=== PATIENT | female | born 1985 | race Caucasian/White ===

== ENCOUNTER 2018-09-21 07:37 | Inpatient (IN) ==
[2018-09-21] MEDS ORDERED: LACTATED RINGERS 1,000 ML IV PRN (07:55)
[2018-09-21] MEDS ORDERED: ONDANSETRON 4 MG/2 ML VIAL IV PRN ×2 (07:55→12:48)
[2018-09-21] MEDS ORDERED: LACTATED RINGERS 1,000 ML IV SCH ×3 (08:00→13:00)
[2018-09-21] MEDS ORDERED: CITRIC ACID/SODIUM CITRATE 30 ML UDCUP PO ONE (08:01)
[2018-09-21] MEDS ORDERED: PROMETHAZINE 25 MG/1 ML VIAL IM ONE (08:01)
[2018-09-21] MEDS ORDERED: ePHEDrine 50 MG/ML AMP IV PRN (08:01)
[2018-09-21] MEDS ORDERED: FAMOTIDINE 20 MG/2 ML VIAL IV ONE (08:01)
[2018-09-21] MEDS ORDERED: hydrOXYzine HCL 25 MG/1 ML VIAL IM PRN (08:01)
[2018-09-21] MEDS ORDERED: diphenhydrAMINE 50 MG/1 ML VIAL IV PRN ×2 (08:01)
[2018-09-21] MEDS ORDERED: OXYTOCIN/LR 20 UNIT/1,000 ML BAG IV ONE ×2 (08:02→12:48)
[2018-09-21 08:16] LABS: Basophils % 0.3 % (0.0-0.8); Eosinophils # 0.1 10*3/uL (0.0-0.87); Eosinophils % 1.8 % (0.00-10.9); Hematocrit 36.7 VOL% (35.7-47.0); Hemoglobin 12.1 GM/DL (12.0-16.0); Immature Granulocytes % 0.5 %; Immature Granulocytes Absolute 0.04 #; Lymphocytes # 1.6 10*3/uL (1.4-4.0); Lymphocytes % 21.3 % (21.3-54.2); Mean Corpuscular Hemoglobin 31 PG (27-34); Mean Corpuscular Volume 93.6 FL (87-102); Monocytes # 0.8 10*3/uL (0.11-0.8); Monocytes % 11.5 % (1.7-12.7); Neutrophils # 4.7 10*3/uL (1.4-7.4); Neutrophils % 64.6 % (38.7-73.9); Platelet Count 265 T/CUMM (130-400); Red Blood Count 3.92 MC/CUMM (3.8-5.5); Red Cell Distribution Width 15.2 % (9.3-17.3); White Blood Count 7.3 T/CUMM (4-12)
[2018-09-21] MEDS ORDERED: ceFAZolin 2,000 MG in PREMIX 1 EACH IV ONE (08:21)
[2018-09-21 08:42] LABS: Alanine Aminotransferase 21 U/L (13-56); Albumin 2.8 G/DL (3.4-5.0); Alkaline Phosphatase 167 U/L (45-117); Aspartate Amino Transferase 21 U/L (0-37); Bilirubin,Total < 0.39 MG/DL (0.2-1.0); Blood Urea Nitrogen 7 MG/DL (7-18); Calcium 8.9 MG/DL (8.5-10.1); Glucose 75 MG/DL (74-106); Osmolality,Calculated 271.7 MOS/KG (273-304); Potassium 4.1 MMOL/L (3.5-5.1); Sodium 138 MMOL/L (136-145); Total Protein 7.7 G/DL (6.4-8.3)
[2018-09-21] MEDS ORDERED: METHYLERGONOVINE 0.2 MG/1 ML AMP ONE (12:06)
[2018-09-21] MEDS ORDERED: RHO(D) IMMUNE GLOBULIN 300 MCG SYRINGE IM ONE (12:48)
[2018-09-21] MEDS ORDERED: SIMETHICONE CHEW 80 MG TABLET PO PRN (12:48)
[2018-09-21] MEDS ORDERED: ACETAMINOPHEN 325 MG TABLET PO PRN (12:48)
[2018-09-21] MEDS ORDERED: MAGNESIUM HYDROXIDE SUSP 30 ML UDCUP PO PRN (12:48)
[2018-09-21] MEDS ORDERED: fentaNYL 100 MCG/2 ML VIAL ONE (13:07)
[2018-09-21 14:00] LABS: Apearance,Urine CLEAR (Clear); Bilirubin,Urine Negative (Negative); Blood, Urine Negative (Negative); Glucose,Urine (UA) Negative (Negative); Ketones,Urine 20 mg/dL (Negative); Nitrite,Urine Negative (Negative); Protein,Urine Negative; RBC,Urine <1 /HPF (0-4); Urine Color Yellow (Yellow); Urine Specific Gravity 1.012 (1.001-1.035); Urine Urobilinogen < 2.0 EU/DL (0.2-1.0); WBC,Urine 1 /HPF (0-6)
[2018-09-21] MEDS ORDERED: BUPIVACAINE SPINAL 0.75% 2 ML AMP SPINAL ONE (15:17)
[2018-09-21] MEDS ORDERED: diphenhydrAMINE 50 MG/1 ML VIAL ONE (15:17)
[2018-09-21] MEDS ORDERED: MORPHINE 10 MG/10 ML VIAL ONE (15:17)
[2018-09-21] MEDS ORDERED: ONDANSETRON 4 MG/2 ML VIAL ONE (15:18)
[2018-09-21] MEDS ORDERED: PHENYLEPHRINE 1 MG/10 ML SYRINGE IV ONE (15:18)
[2018-09-21] MEDS: oxyCODONE/ACETAMINOPHEN 5-325 MG TABLET PO PRN (17:57)
[2018-09-21] MEDS: ceFAZolin 1,000 MG in SYRINGE 1 EACH IV SCH (20:07)
[2018-09-21] MEDS: DOCUSATE SODIUM 100 MG CAPSULE PO SCH (22:56)
[2018-09-22] MEDS: oxyCODONE/ACETAMINOPHEN 5-325 MG TABLET PO PRN ×5 (01:50→19:34)
[2018-09-22] MEDS: IBUPROFEN 800 MG TABLET PO PRN ×3 (01:50→19:33)
[2018-09-22] MEDS: ceFAZolin 1,000 MG in SYRINGE 1 EACH IV SCH (03:57)
[2018-09-22 04:48] LABS: Basophils % 0.2 % (0.0-0.8); Eosinophils # 0.1 10*3/uL (0.0-0.87); Hematocrit 32.3 VOL% (35.7-47.0); Hemoglobin 10.5 GM/DL (12.0-16.0); Immature Granulocytes % 0.6 %; Immature Granulocytes Absolute 0.06 #; Lymphocytes # 1.5 10*3/uL (1.4-4.0); Mean Corpuscular HGB Conc 32.5 GM/DL (32-36); Mean Corpuscular Hemoglobin 30 PG (27-34); Mean Corpuscular Volume 92.8 FL (87-102); Mean Platelet Volume 9.5 FL (9.6-12.0); Monocytes # 0.9 10*3/uL (0.11-0.8); Neutrophils # 7.6 10*3/uL (1.4-7.4); Neutrophils % 74.2 % (38.7-73.9); Platelet Count 226 T/CUMM (130-400); Red Blood Count 3.48 MC/CUMM (3.8-5.5); Red Cell Distribution Width 15.4 % (9.3-17.3); White Blood Count 10.2 T/CUMM (4-12)
[2018-09-22] MEDS: MULTIVITAMIN (PRENATAL) TABLET PO SCH (09:42)
[2018-09-22] MEDS: DOCUSATE SODIUM 100 MG CAPSULE PO SCH ×2 (09:42→21:32)
[2018-09-23] MEDS: IBUPROFEN 800 MG TABLET PO PRN (02:12)
[2018-09-23] MEDS: oxyCODONE/ACETAMINOPHEN 5-325 MG TABLET PO PRN ×2 (02:13→08:55)
[2018-09-23 07:29] VITALS: BP 108/73
[2018-09-23] MEDS: DOCUSATE SODIUM 100 MG CAPSULE PO SCH (08:53)
[2018-09-23] MEDS: MULTIVITAMIN (PRENATAL) TABLET PO SCH (08:53)
== END 2018-09-23 12:00 | disposition home or self-care (01) | DRG 787 ==
LOC: N.LDOUT 07:37 → N.LD 07:41 → N.OB 21:48
PROVIDERS: ADMIT Obstetrics & Gynecology; ATTEND Obstetrics & Gynecology
PROC: LDCSECT (ICD-10-PCS; 2018-09-21 11:00)